=== PATIENT | female | born 2000 | race Two or more races ===

== ENCOUNTER 2024-10-21 10:23 | Outpatient (CLI) | payer OTHER | END 2024-10-21 10:35 | disposition home or self-care (01) | LOC: TOM 10:23 | PROVIDERS: ATTEND Surgery | DX: R10.0 Acute abdomen (principal); K59.09 Other constipation ==

== ENCOUNTER 2024-10-23 08:21 | Outpatient (CLI) | payer OTHER | END 2024-10-23 08:25 | disposition home or self-care (01) | LOC: SONOGRAMA 08:21 | PROVIDERS: ATTEND Surgery | DX: R10.0 Acute abdomen (principal) ==